=== PATIENT | female | born 1980 | race Caucasian/White ===

== ENCOUNTER 2024-06-06 17:55 | Inpatient (IN) ==
[2024-06-06] MEDS ORDERED: SODIUM BICARBONATE 10 MEQ/10 ML SYRINGE 50 ML ONE (18:20)
[2024-06-06] MEDS: 0.9 % SODIUM CHLORIDE 1000 ML 1,000 ML IV SCH (18:44)
[2024-06-06] MEDS: SODIUM BICARBONATE 10 MEQ/10 ML SYRINGE 50 ML IVP ONE (18:45)
[2024-06-06 20:39] LABS: pH ABG 7.36 (7.35-7.45)
[2024-06-06 20:40] LABS: Base Excess ABG 7.6 mmo1/L (-2-2); Oxygen Saturation ABG 95 % (92-100); PCO2 ABG 62 mmHg (35-45); PO2 ABG 78 mmHg (60-100)
[2024-06-06] MEDS ORDERED: ACETAMINOPHEN 1000 MG/100 ML 1,000 MG/100 ML IV.SOLN IV PRN (22:14)
[2024-06-06] MEDS ORDERED: METOCLOPRAMIDE HCL 5 MG in 0.9 % SODIUM CHLORIDE 50 ML IVP PRN (22:14)
[2024-06-06 23:19] LABS: Oxygen Saturation ABG 98 % (92-100); pH ABG 7.35 (7.35-7.45)
[2024-06-06 23:34] LABS: Base Excess ABG 6.7 mmo1/L (-2-2); PCO2 ABG 62 mmHg (35-45); PO2 ABG 103 mmHg (60-100)
[2024-06-07] MEDS: IPRATROPIUM/ALBUTEROL SULFATE 3 ML AMPUL.NEB INH SCH (00:43)
[2024-06-07] MEDS: TRAZODONE HCL 50 MG TABLET PO SCH ×2 (04:39→10:04)
[2024-06-07 05:26] LABS: Basophils%(Percent) Auto 0.1 (0.1-0.85); Eosinophils#(Absolute)Auto 0.1 (0.0-0.2); Eosinophils%(Percent) Auto 0.6 % (0.4-2.8); Granulocytes % - Auto 84.8 % (47.8-71.3); Granulocytes#(Absolute)- Auto 15.3 (2.3-6.0); Hematocrit 34.5 % (35.9-46.7); Mean Corpuscular Volume 88.4 fl (81.0-93.7); Monocytes #(Absolute)- Auto 0.8 (1.1-3.1); Monocytes %(Percent)- Auto 4.6 % (3.6-9.8); Platelet Count 342 K/uL (152-353); White Blood Count 18.1 K/uL (4.3-9.3)
[2024-06-07 05:35] LABS: Potassium 4.1 mmol/L (3.6-5.2)
[2024-06-07] MEDS: BUDESONIDE 0.5 MG/2 ML AMPUL.NEB INH SCH (08:20)
[2024-06-07] MEDS ORDERED: ACETAMINOPHEN 325 MG TABLET PO PRN ×2 (09:00)
[2024-06-07 09:29] LABS: PCO2 ABG 56 mmHg (35-45); PO2 ABG 55 mmHg (60-100); pH ABG 7.37 (7.35-7.45)
[2024-06-07 09:30] LABS: Base Excess ABG 5.7 mmo1/L (-2-2); Oxygen Saturation ABG 87 % (92-100)
[2024-06-07] MEDS ORDERED: ZIPRASIDONE MESYLATE 20 MG/ML VIAL IM PRN (10:00)
[2024-06-07] MEDS: POTASSIUM CHLORIDE 20 MEQ TAB.ER.PRT PO SCH (10:04)
[2024-06-07] MEDS: SERTRALINE HCL 50 MG TABLET PO SCH (10:04)
[2024-06-07] MEDS: lamoTRIgine 100 MG TABLET PO SCH (10:04)
[2024-06-07] MEDS: carvediloL 6.25 MG TABLET PO SCH (10:04)
[2024-06-07] MEDS: CHOLECALCIFEROL 1,000 UNITS TABLET (25 MCG) PO SCH ×2 (10:05→10:50)
[2024-06-07] MEDS: PANTOPRAZOLE SODIUM 40 MG TABLET.DR PO SCH (10:06)
[2024-06-07] MEDS: lamoTRIgine 25 MG TABLET PO SCH (10:06)
[2024-06-07] MEDS: OLANZapine 5 MG TABLET PO SCH (10:07)
[2024-06-07] MEDS: AZITHROMYCIN 500 MG 500 MG in 0.9 % SODIUM CHLORIDE 250 ML IV SCH (10:07)
[2024-06-07] MEDS: LEVOTHYROXINE SODIUM 50 MCG TABLET PO SCH (10:07)
[2024-06-07] MEDS: ziprasidone HCL 20 MG CAPSULE PO SCH ×2 (10:07→10:52)
--- NOTE | 2024-06-07 10:51 | Progress Note ---
Progress Note: Subjective Subjective Interval history: Patient is rather agitated and pulling out lines and not tolerating BiPAP or she is given Geodon and Versed in the morning as they were resolved she is more alert did not believe that her lines and is able to eat without difficulty. Patient remained afebrile repeat ABGs look better than original 1 from yesterday. Patient is unaware of any other occurrences as he is agitated and is asking for her mom and to go home Exam 2 Exam: Observed in the day room receiving IV antibiotics. She was trying to pull the IV out of her arm. Constitutional: abnormal general appearance (she is obese and has cerebral palsy, she always looks unkept) (disheveled) and (chronically ill), distress noted (moderate) and (respiratory), abnormal body habitus (obese), limitations noted (altered mental status), (behavioral limitations) and (physical limitations) and level of alertness abnormal (obtunded), (lethargic) and (confused) Vital Signs - 24 hr 06/06/24 18:00 06/06/24 18:38 06/06/24 18:40 Temperature 100 F H Pulse Rate 88 Pulse Rate [Left R adial] 94 H 98 H Respiratory Rate 24 19 Blood Pressure [Le ft Arm] 121/71 Pulse Oximetry 84 L 98 Oxygen Delivery Me thod Nasal Cannula BiPAP Oxygen Flow Rate 4 Fraction of Inspir ed Oxygen 60 06/06/24 19:00 06/06/24 19:30 06/06/24 20:00 Temperature 98.3 F Pulse Rate Pulse Rate [Left R adial] 87 88 96 H Respiratory Rate 20 20 19 Blood Pressure [Le ft Arm] 126/83 126/81 117/75 Pulse Oximetry 96 96 96 Oxygen Delivery Me thod BiPAP BiPAP BiPAP Oxygen Flow Rate Fraction of Inspir ed Oxygen 06/06/24 20:09 06/06/24 20:30 06/06/24 20:57 Temperature 98.1 F Pulse Rate 91 H Pulse Rate [Left R adial] 100 H 99 H Respiratory Rate 18 18 Blood Pressure [Le ft Arm] 118/75 125/84 Pulse Oximetry 98 98 Oxygen Delivery Me thod BiPAP BiPAP Oxygen Flow Rate Fraction of Inspir ed Oxygen 60 06/07/24 00:20 06/07/24 00:29 06/07/24 00:43 Temperature 98.8 F Pulse Rate 89 Pulse Rate [Left R adial] 90 Respiratory Rate 26 H Blood Pressure [Le ft Arm] 119/73 Pulse Oximetry 92 L 94 L Oxygen Delivery Me thod BiPAP Oxygen Flow Rate Fraction of Inspir ed Oxygen 60 06/07/24 04:00 06/07/24 04:36 06/07/24 04:36 Temperature 98.8 F Pulse Rate 75 Pulse Rate [Left R adial] 91 H Respiratory Rate 15 Blood Pressure [Le ft Arm] 107/65 Pulse Oximetry 93 L 97 Oxygen Delivery Me thod BiPAP Oxygen Flow Rate Fraction of Inspir ed Oxygen 60 06/07/24 08:00 06/07/24 08:00 06/07/24 08:21 Temperature 99 F Pulse Rate 92 H Pulse Rate [Left R adial] 97 H Respiratory Rate 19 Blood Pressure [Le ft Arm] 118/76 Pulse Oximetry 99 97 Oxygen Delivery Me thod BiPAP Oxygen Flow Rate Fraction of Inspir ed Oxygen 60 HENMT: normocephalic, head/scalp atraumatic, hearing grossly normal bilaterally, external ears normal, EACs normal, TMs abnormal, nasal mucous membranes normal, external nose normal, oral mucous membranes abnormal, oropharynx abnormal and dentition abnormal Teeth are ground down to gum. Eyes: PERRL, EOMs intact bilaterally, conjunctivae normal, no scleral icterus, papilledema noted and periorbital findings normal Neck/C-Spine: trachea midline, cervical spine nontender, abnormal cervical ROM noted, supple, no meningeal signs and thyroid normal Lymph: no lymphadenopathy noted and no lymphedema noted Chest: palpation of chest normal Respiratory: breath sounds unequal (shallow and deminished), abnormal respiratory effort (shallow breathing), auscultation abnormal (diminished breath sound), wheezing noted, no rales, no retractions and no use of accessory muscles rapid Cardiovascular: heart rate abnormal (tachycardic), regular rhythm noted, gallop noted, rub noted, murmur noted, JVD noted and click(s) noted Gastrointestinal: abdomen abnormal to inspection (obese), abdomen soft to palpation, nontender to palpation, nondistended, abnormal bowel sounds noted (hypoactive bowel sounds), hepatosplenomegaly noted, no pulsatile mass, no ascites and hernia noted (umbilical) (rash weeping) Genitourinary: no CVA tenderness and bladder normal to palpation Back/Pelvis: no thoracic spine tenderness, no lumbar spine tenderness, thoracic spine ROM abnormal and lumbar spine ROM abnormal Extremities: normal to palpation, no tenderness, abnormal ROM noted and deformity noted 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 Feel stressed/tense/nervous/anxious/difficulty sleeping: to some extent Life stressor details: Being in a LTC facility away from her family Due to disability, difficulty making decisions: Yes (limited cognitive ability) Skin: skin color abnormal, rash noted (erythema and weeping breast and groin and open weeping abrasion in the umbi), lesion(s) noted, ecchymosis noted, wound(s) noted, laceration(s) noted Reports (irregular), (superficial) and other (weeping in the umbilical hernia), skin turgor abnormal, no jaundice, no petechiae, no mottling and nails abnormality noted Progress Note: Objective Labs Labs: CBC WBC 18.1 K/uL (4.3-9.3) H 06/07/24 05:15 RBC 3.9 M/uL (4.00-5.50) L 06/07/24 05:15 Hgb 10.9 gm/dL (12.5-15.8) L 06/07/24 05:15 Hct 34.5 % (35.9-46.7) L 06/07/24 05:15 MCV 88.4 fl (81.0-93.7) 06/07/24 05:15 MCH 28.0 pg (27.6-32.2) 06/07/24 05:15 MCHC 31.6 g/dl (33.1-35.3) L 06/07/24 05:15 RDW 15.9 % (11.4-14.2) H 06/07/24 05:15 Plt Count 342 K/uL (152-353) 06/07/24 05:15 MPV 7.1 fl (6.9-10.8) 06/07/24 05:15 Gran % 84.8 % (47.8-71.3) H 06/07/24 05:15 Lymph % (Auto) 9.9 % (20.0-43.0) L 06/07/24 05:15 Grayson % (Auto) 4.6 % (3.6-9.8) 06/07/24 05:15 Eos % (Auto) 0.6 % (0.4-2.8) 06/07/24 05:15 Baso % (Auto) 0.1 (0.1-0.85) 06/07/24 05:15 Lymph # (Auto) 1.8 (1.1-3.1) 06/07/24 05:15 Grayson # (Auto) 0.8 (1.1-3.1) L 06/07/24 05:15 Eos # (Auto) 0.1 (0.0-0.2) 06/07/24 05:15 Baso # (Auto) 0.0 (0.0-0.1) 06/07/24 05:15 Absolute Gran (auto) 15.3 (2.3-6.0) H 06/07/24 05:15 BMP Sodium 140 mmol/L (136-145) 06/07/24 05:15 Potassium 4.1 mmol/L (3.6-5.2) 06/07/24 05:15 Chloride 104.0 mmol/L (98-107) 06/07/24 05:15 Carbon Dioxide 32 mmol/L (21-32) 06/07/24 05:15 Anion Gap 4.0 mEq/L (4-14) 06/07/24 05:15 BUN 15 mg/dL (7-18) 06/07/24 05:15 Creatinine 0.8 mg/dL (0.6-1.3) 06/07/24 05:15 Estimated GFR 93.7 (>59.9) 06/07/24 05:15 Glucose 81 mg/dL (70-110) 06/07/24 05:15 Calcium 7.9 mg/dL (8.5-10.1) L 06/07/24 05:15 Total Bilirubin 0.83 mg/dL (0.0-1.0) 06/07/24 05:15 AST 18 U/L (15-37) 06/07/24 05:15 ALT 20 U/L (30-65) L 06/07/24 05:15 Alkaline Phosphatase 113 U/L (50-136) 06/07/24 05:15 Total Protein 6.5 g/dL (6.4-8.2) 06/07/24 05:15 Albumin 2.0 g/dL (3.4-5.0) L 06/07/24 05:15 Liver Function Total Bilirubin 0.83 mg/dL (0.0-1.0) 06/07/24 05:15 AST 18 U/L (15-37) 06/07/24 05:15 ALT 20 U/L (30-65) L 06/07/24 05:15 Alkaline Phosphatase 113 U/L (50-136) 06/07/24 05:15 Total Protein 6.5 g/dL (6.4-8.2) 06/07/24 05:15 Albumin 2.0 g/dL (3.4-5.0) L 06/07/24 05:15 ABG Attestation: I have reviewed the pertinent ABG results. Interpretation: 06/06/24 16:59 06/06/24 19:41 06/06/24 22:20 06/07/24 08:39 06/08/24 00:18 ABG pH (7.35-7.45) 7.29L* w 7.36 w 7.35 w 7.37 y 7.34L ABG pCO2 (35-45mmHg) 70H* r 62H* r 62H* r 56H* r 60H* ABG pO2 (60-100mmHg) 59L w 78 y 103H y 55L w 82 ABG pO2 w 169 w 350 w 350 w 187 w 182 ABG PO2/FiO2 Ratio w 0.35 w 0.22 w 0.29 w 0.45 ABG HCO3 (22-26mmo1/L) 33.7H y 35.0H y 34.2H y 32.4H y 32.4H ABG Total CO2 w 35.8 w 36.9 w 36.1 w 34.1 w 34.2 ABG O2 Saturation (92-100%) 87L* w 95 w 98 r 87L* w 95 ABG Base Excess (-2-2mmo1/L) 5.0H y 7.6H y 6.7H y 5.7H y 5H A-a O2 Gradient w 110 w 272 w 247 w 132 w 100 Respiratory Index (0-1) 1.9H y 3.5H y 2.4H y 2.4H y 1.2H Vent Mode w bipap 20/5 w bipap 20/5 18 w FiO2 w 36 w 60 w 60.0 w 36 w 36 Pulse Oximetry Attestation: I have reviewed the pertinent pulse oximetry results. ECG Attestation: I have reviewed the pertinent ECG results. Prior ECG tracings: available for review Imaging acute abdominal series: Attestation: I personally reviewed and interpreted this imaging study as follows: Radiologist's impression: EXAM: XR ACUTE ABDOMEN SERIES HISTORY: BOWLSBOWLS; Unavailable COMPARISON: Chest radiograph May 20, 2024 TECHNIQUE: FINDINGS: The trachea is midline. The cardiac silhouette is borderline in size. An infiltration is at left lower lung zone. The rest of lungs are clear without focal mass or consolidation. There is no effusion or pneumothorax. The bony thorax is unremarkable. Flat plate and upright evaluation of the abdomen demonstrates a normal bowel gas pattern. There is no pneumoperitoneum. Gallbladder is surgically absent. No pathological soft tissue mass or calcification can be observed. The bony structures are grossly intact. IMPRESSION: 1. Left lung base pneumonia. 2. No evidence for acute abdominal pathology identified. EXAM: XR CHEST 2V HISTORY: left pneumonia, hypercapnealeft pneumonia, hypercapnea; COMPARISON: May 23, 2024 FINDINGS: The trachea is midline. The cardiac silhouette is mildly enlarged. Bilateral patchy infiltrates are at mid and lower lung zones. The rest of lungs are clear without focal infiltrate or effusion. The bony thorax is unremarkable. IMPRESSION: Bilateral bronchopneumonia. Progress Note: A&P Assessment and Plan (1) Respiratory failure with hypoxia and hypercapnia: Qualifiers: Chronicity: acute Qualified Code(s): J96.01 - Acute respiratory failure with hypoxia; J96.02 - Acute respiratory failure with hypercapnia (2) Seizure: (3) Abrasion of abdominal wall with infection: Qualifiers: Encounter type: initial encounter Qualified Code(s): S30.811A - Abrasion of abdominal wall, initial encounter; L08.9 - Local infection of the skin and subcutaneous tissue, unspecified (4) Nausea & vomiting: Assessment and Plan: none noted today and patient tolerating speech therapy and food well today although still has nausea Qualifiers: Vomiting type: unspecified Qualified Code(s): R11.2 - Nausea with vomiting, unspecified (5) Pneumonia: Qualifiers: Laterality: left Lung location: lower lobe of lung Pneumonia type: due to unspecified organism Qualified Code(s): J18.9 - Pneumonia, unspecified organism (6) Hypoalbuminemia: (7) Tinea: (8) Hyponatremia: (9) Tachycardia: (10) Anemia: Qualifiers: Anemia type: unspecified type Qualified Code(s): D64.9 - Anemia, unspecified (11) Hypercapnia: (12) Generalized anxiety disorder: (13) Suicidal ideations: (14) Depression with suicidal ideation: (15) Major depressive disorder, recurrent, moderate: (16) Cerebral palsy: Qualifiers: Cerebral palsy type: unspecified type Qualified Code(s): G80.9 - Cerebral palsy, unspecified (17) Hypothyroid: Qualifiers: Hypothyroidism type: acquired Qualified Code(s): E03.9 - Hypothyroidism, unspecified (18) GERD (gastroesophageal reflux disease): Qualifiers: Esophagitis bleeding: without hemorrhage Esophagitis presence: with esophagitis Qualified Code(s): K21.00 - Gastro-esophageal reflux disease with esophagitis, without bleeding (19) HTN (hypertension): Qualifiers: Hypertension type: primary hypertension Qualified Code(s): I10 - Essential (primary) hypertension (20) Oppositional defiant behavior: Plan Azithromycin 500 mg in Sodium Chloride 250 mls @ 250 mls/hr IV Q24H vancomycin pharmacy to dose zosyn 3.375 gram IV every 6 hours Bipap and titrate and wean as tolerated duo nebs Sulfate 3 ml INH RQ4 Budesonide 0.5 mg INH RBID Ketorolac Tromethamine 30 mg IVP ONCE and q6 hours Phenergan 25 mg IV ONCE hours prn reglan 5 every 6 hours prn zosyn pharmacy to dose vancomycin pharmacy to dose lactic acid induced sputum culture abg to follow gas ekg electrolyte replacement as needed CBC, CMP and blood culture tylenol 1 gram IV every 4 hours prn physical therapy for posural drainage NPO until can tolerate food with no more emesis x 2 hours and patient more alert NS 500 ml bolut then run at 125 ml per hour keep belly button clean and dry Continue to monitor Fall Risk Details Rowland Fall Scale Risk Level: Moderate Fall Risk Current Medications: Current Medications Acetaminophen (Acetaminophen 325 Mg Tablet) 650 mg PO Q6H PRN PRN Reason: MILD PAIN SCALE 1-4 Acetaminophen (Acetaminophen 325 Mg Tablet) 650 mg PO Q6H PRN PRN Reason: Fever OF 100.5 OR GREATER Albuterol Sulfate (Ipratropium/Albuterol Sulfate 3 Ml Ampul.Neb) 3 ml INH RQ4 [facility] Last Admin: 06/07/24 08:20 Dose: 3 ml Atorvastatin Calcium (Atorvastatin Calcium 10 Mg Tablet) 10 mg PO BEDTIME GUILHERME Budesonide (Budesonide 0.5 Mg/2 Ml Ampul.Neb) 0.5 mg INH RBID [facility] Last Admin: 06/07/24 08:20 Dose: 0.5 mg Carvedilol (Carvedilol 6.25 Mg Tablet) 6.25 mg PO BID [facility] Last Admin: 06/07/24 10:04 Dose: 6.25 mg Cholecalciferol (Cholecalciferol 1,000 Units Tablet (25 Mcg)) 5,000 unit PO DAILY [facility] Last Admin: 06/07/24 10:05 Dose: 5,000 unit Cholecalciferol (Cholecalciferol 1,000 Units Tablet (25 Mcg)) 1,000 unit PO BID [facility] Sodium Chloride (Sodium Chloride) 1,000 mls @ 125 mls/hr IV CONT [facility] Last Admin: 06/07/24 04:16 Dose: 125 mls/hr Azithromycin 500 mg/ Sodium (Chloride) 250 mls @ 250 mls/hr IV DAILY [facility] Last Admin: 06/07/24 10:07 Dose: 250 mls/hr Promethazine HCl 25 mg/ Sodium (Chloride) 51 mls @ 200 mls/hr IV Q6H PRN PRN Reason: Nausea And Vomiting Metoclopramide HCl 5 mg/ (Sodium Chloride) 51 mls @ 200 mls/hr IVP Q8H PRN PRN Reason: Nausea And Vomiting Acetaminophen (Acetaminophen 1000 Mg/100 Ml) 1,000 mg in 100 mls @ 400 mls/hr IV Q4H PRN PRN Reason: Pain or fever Ketorolac Tromethamine (Ketorolac 30 Mg/Ml Inj Vial) 30 mg IVP Q6H PRN PRN Reason: Pain Stop: 06/11/24 22:08 Lamotrigine (Lamotrigine 25 Mg Tablet) 25 mg PO BID [facility] Last Admin: 06/07/24 10:06 Dose: 25 mg Lamotrigine (Lamotrigine 100 Mg Tablet) 100 mg PO BID [facility] Last Admin: 06/07/24 10:04 Dose: 100 mg Levothyroxine Sodium (Levothyroxine Sodium 50 Mcg Tablet) 50 mcg PO QDAC [facility] Last Admin: 06/07/24 10:07 Dose: 50 mcg Olanzapine (Olanzapine 5 Mg Tablet) 5 mg PO BID [facility] Last Admin: 06/07/24 10:07 Dose: 5 mg Oxcarbazepine (Oxcarbazepine 150 Mg Tablet) 600 mg PO BID [facility] Pantoprazole Sodium (Pantoprazole Sodium 40 Mg Tablet.Dr) 40 mg PO DAILY [facility] Last Admin: 06/07/24 10:06 Dose: 40 mg Potassium Chloride (Potassium Chloride 20 Meq Tab.Er.Prt) 20 meq PO DAILY [facility] Last Admin: 06/07/24 10:04 Dose: 20 meq Sertraline HCl (Sertraline Hcl 50 Mg Tablet) 100 mg PO DAILY [facility] Last Admin: 06/07/24 10:04 Dose: 100 mg Trazodone HCl (Trazodone Hcl 50 Mg Tablet) 100 mg PO BID [facility] Last Admin: 06/07/24 10:42 Dose: Not Given Trazodone HCl (Trazodone Hcl 50 Mg Tablet) 100 mg PO BID [facility] Last Admin: 06/07/24 10:04 Dose: 100 mg Ziprasidone (Ziprasidone Mesylate 20 Mg/Ml Vial) 10 mg IM Q8H PRN PRN Reason: Agitation Ziprasidone (Ziprasidone Hcl 20 Mg Capsule) 40 mg PO DAILY [facility] Last Admin: 06/07/24 10:07 Dose: 40 mg Ziprasidone (Ziprasidone Hcl 20 Mg Capsule) 60 mg PO BID [facility] Ziprasidone (Ziprasidone Mesylate 20 Mg/Ml Vial) 10 mg IM Q8H PRN PRN Reason: AGITATION Time Spent With Patient Time: Total time spent is greater than 50% in coordination of care (as documented) at patient's floor/unit and/or counseling patient: Time with patient: greater than 35 minutes
[2024-06-07] MEDS: METOCLOPRAMIDE HCL 5 MG in 0.9 % SODIUM CHLORIDE 50 ML IVP SCH (15:18)
--- NOTE | 2024-06-07 15:38 | Discharge Summary ---
DS: Providers Provider Date of admission: 06/06/24 18:03 Primary care physician: Jonah Blackburn MD Consults: 06/06/24 22:14 Consult to Physical Therapy Routine Comment: Consulting Provider: Reason for consultation: postural drainage Physician Instructions: for postural drainage 06/07/24 14:31 Consult to Occupational Therapy Routine Comment: Consulting Provider: Reason for consultation: weakness and cerebral palsy Physician Instructions: evaluate and treat Consult to Physical Therapy Routine Comment: Consulting Provider: Reason for consultation: weakness and cerbal palsy Physician Instructions: evaluate and treat Consult to Speech Therapy Routine Comment: Consulting Provider: Reason for consultation: weakness and cerebral palsy Physician Instructions: evaluate and treat Discharging clinician: Jonah Blackburn Anticipated date of discharge: 06/06/24 DS: Summary Hospital Course Hospital Course: Patient was transferred to the medical surgical floor for IV fluids and breathing treatments. Status at Discharge Cognitive/behavioral status at discharge: agitated and uncooperative, hollering out. trying to pull out her IV. Functional status at discharge: bed bound Overall status at discharge: other (has pneumonia) Time Spent with Patient Time attestation: Total time spent providing and/or coordinating discharge services: 30 minutes Time spent: greater than 30 minutes Exam Constitutional: average body habitus (obese and is unable to do for herself. Total care.) and alert Vital Signs - 24 hr 06/06/24 18:00 06/06/24 18:38 06/06/24 18:40 Temperature 100 F H Pulse Rate 88 Pulse Rate [Left R adial] 94 H 98 H Respiratory Rate 24 19 Blood Pressure [Le ft Arm] 121/71 Pulse Oximetry 84 L 98 Oxygen Delivery Me thod Nasal Cannula BiPAP Oxygen Flow Rate 4 Fraction of Inspir ed Oxygen 60 06/06/24 19:00 06/06/24 19:30 06/06/24 20:00 Temperature 98.3 F Pulse Rate Pulse Rate [Left R adial] 87 88 96 H Respiratory Rate 20 20 19 Blood Pressure [Le ft Arm] 126/83 126/81 117/75 Pulse Oximetry 96 96 96 Oxygen Delivery Me thod BiPAP BiPAP BiPAP Oxygen Flow Rate Fraction of Inspir ed Oxygen 06/06/24 20:09 06/06/24 20:30 06/06/24 20:57 Temperature 98.1 F Pulse Rate 91 H Pulse Rate [Left R adial] 100 H 99 H Respiratory Rate 18 18 Blood Pressure [Le ft Arm] 118/75 125/84 Pulse Oximetry 98 98 Oxygen Delivery Me thod BiPAP BiPAP Oxygen Flow Rate Fraction of Inspir ed Oxygen 60 06/07/24 00:20 06/07/24 00:29 06/07/24 00:43 Temperature 98.8 F Pulse Rate 89 Pulse Rate [Left R adial] 90 Respiratory Rate 26 H Blood Pressure [Le ft Arm] 119/73 Pulse Oximetry 92 L 94 L Oxygen Delivery Me thod BiPAP Oxygen Flow Rate Fraction of Inspir ed Oxygen 60 06/07/24 04:00 06/07/24 04:36 06/07/24 04:36 Temperature 98.8 F Pulse Rate 75 Pulse Rate [Left R adial] 91 H Respiratory Rate 15 Blood Pressure [Le ft Arm] 107/65 Pulse Oximetry 93 L 97 Oxygen Delivery Me thod BiPAP Oxygen Flow Rate Fraction of Inspir ed Oxygen 60 06/07/24 08:00 06/07/24 08:00 06/07/24 08:21 Temperature 99 F Pulse Rate 92 H Pulse Rate [Left R adial] 97 H Respiratory Rate 19 Blood Pressure [Le ft Arm] 118/76 Pulse Oximetry 99 97 Oxygen Delivery Me thod BiPAP Oxygen Flow Rate Fraction of Inspir ed Oxygen 60 06/07/24 11:35 06/07/24 12:00 Temperature 97.8 F Pulse Rate Pulse Rate [Left R adial] 88 Respiratory Rate 19 Blood Pressure [Le ft Arm] 139/83 Pulse Oximetry 99 95 Oxygen Delivery Me thod Room Air Oxygen Flow Rate Fraction of Inspir ed Oxygen HENMT: She has cerebral palsy and she rotates her head around and around her neck. 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 She is unable to ambulate but she can transfer. Psychiatry: Mental Status Exam documented in the separate MSE Feel stressed/tense/nervous/anxious/difficulty sleeping: to some extent Due to disability, difficulty making decisions: Yes (limited cognitive ability.) DS: Data Data Completed and Pending Labs on day of discharge: Labs from last 24 hours 06/07/24 06/07/24 06/07/24 08:39 08:39 05:15 WBC 18.1 H RBC 3.9 L Hgb 10.9 L Hct 34.5 L MCV 88.4 MCH 28.0 MCHC 31.6 L RDW 15.9 H Plt Count 342 MPV 7.1 Gran % 84.8 H Lymph % (Auto) 9.9 L [place]rell % (Auto) 4.6 Eos % (Auto) 0.6 Baso % (Auto) 0.1 Lymph # (Auto) 1.8 [place]rell # (Auto) 0.8 L Eos # (Auto) 0.1 Baso # (Auto) 0.0 Absolute Gran (auto) 15.3 H ABG pH 7.37 ABG pCO2 56 H* ABG pO2 187 55 L ABG PO2/FiO2 Ratio 0.29 ABG HCO3 32.4 H ABG Total CO2 34.1 ABG O2 Saturation 87 L* ABG Base Excess 5.7 H A-a O2 Gradient 132 Respiratory Index 2.4 H Vent Mode FiO2 36 Sodium 140 Potassium 4.1 Chloride 104.0 Carbon Dioxide 32 Anion Gap 4.0 BUN 15 Creatinine 0.8 Estimated GFR 93.7 Glucose 81 Lactic Acid 0.5 Calcium 7.9 L Total Bilirubin 0.83 AST 18 ALT 20 L Alkaline Phosphatase 113 Total Protein 6.5 Albumin 2.0 L 06/06/24 06/06/24 06/06/24 22:20 22:20 19:41 WBC RBC Hgb Hct MCV MCH MCHC RDW Plt Count MPV Gran % Lymph % (Auto) Terrell % (Auto) Eos % (Auto) Baso % (Auto) Lymph # (Auto) Terrell # (Auto) Eos # (Auto) Baso # (Auto) Absolute Gran (auto) ABG pH 7.35 ABG pCO2 62 H* ABG pO2 350 103 H 350 ABG PO2/FiO2 Ratio 0.22 ABG HCO3 34.2 H 35.0 H ABG Total CO2 36.1 36.9 ABG O2 Saturation 98 95 ABG Base Excess 6.7 H 7.6 H A-a O2 Gradient 247 272 Respiratory Index 2.4 H 3.5 H Vent Mode bipap 20/5 18 bipap 20/5 FiO2 60.0 60 Sodium Potassium Chloride Carbon Dioxide Anion Gap BUN Creatinine Estimated GFR Glucose Lactic Acid Calcium Total Bilirubin AST ALT Alkaline Phosphatase Total Protein Albumin 06/06/24 19:41 WBC RBC Hgb Hct MCV MCH MCHC RDW Plt Count MPV Gran % Lymph % (Auto) Terrell % (Auto) Eos % (Auto) Baso % (Auto) Lymph # (Auto) Terrell # (Auto) Eos # (Auto) Baso # (Auto) Absolute Gran (auto) ABG pH 7.36 ABG pCO2 62 H* ABG pO2 78 ABG PO2/FiO2 Ratio ABG HCO3 ABG Total CO2 ABG O2 Saturation ABG Base Excess A-a O2 Gradient Respiratory Index Vent Mode FiO2 Sodium Potassium Chloride Carbon Dioxide Anion Gap BUN Creatinine Estimated GFR Glucose Lactic Acid Calcium Total Bilirubin AST ALT Alkaline Phosphatase Total Protein Albumin Discharge Plan Discharge Disposition: [facility] Hospital Condition: Other Discharge Medications: No Action acetaminophen [Pain Reliever (acetaminophen)] 325 mg tablet 650 mg PO Q6H PRN (Reason: fever or pain) atorvastatin 10 mg tablet 10 mg PO BEDTIME carvedilol 6.25 mg tablet 6.25 mg PO BID furosemide 40 mg tablet 40 mg PO DAILY lamotrigine 100 mg tablet 100 mg PO BID lamotrigine 25 mg tablet 25 mg PO BID levothyroxine 50 mcg tablet 50 mcg PO .QDAC olanzapine 5 mg tablet 5 mg PO BID oxcarbazepine 600 mg tablet 600 mg PO BID pantoprazole 40 mg tablet,delayed release (DR/EC) 40 mg PO DAILY potassium chloride 20 mEq tablet,ER particles/crystals 20 meq PO DAILY sertraline 100 mg tablet 100 mg PO DAILY trazodone 100 mg tablet 100 mg PO BID ziprasidone HCl 60 mg capsule 60 mg PO BID ziprasidone mesylate 20 mg/mL (final conc.) recon soln 10 mg IM Q8H ziprasidone HCl 40 mg capsule 40 mg PO DAILY cholecalciferol (vitamin D3) 25 mcg (1,000 unit) capsule 1,000 unit PO BID cholecalciferol (vitamin D3) 125 mcg (5,000 unit) capsule 5,000 unit PO DAILY ketoconazole-salicylic acid 2-2 % shampoo 1 ea topical Q OTHER DAY cetirizine [24Hour Allergy] 10 mg tablet 10 mg PO DAILY Discharge Orders: Discharge Order (Routine); Ordered 06/06/24 Ordered By: Ree Sandoval Activity: increase activity as tolerated and resume usual activities as tolerated Diet Detail: mechanical soft Hospital Course: Patient was transferred to the medical surgical floor for IV fluids and breathing treatments. Interventions: MED/SURG & ICU Observation Charge Sheet Last Done: 06/06/24 18:03
[2024-06-07] MEDS: PIPERACILLIN/TAZOBACTAM 3.375 3.375 GM in 0.9 % SODIUM CHLORIDE MB+ 100 ML IV SCH (16:15)
--- NOTE | 2024-06-07 16:36 | Discharge Summary ---
DS: Providers Provider Date of admission: 06/06/24 18:03 Primary care physician: Jonah Blackburn MD Consults: 06/06/24 22:14 Consult to Physical Therapy Routine Comment: Consulting Provider: Reason for consultation: postural drainage Physician Instructions: for postural drainage 06/07/24 14:31 Consult to Occupational Therapy Routine Comment: Consulting Provider: Reason for consultation: weakness and cerebral palsy Physician Instructions: evaluate and treat Consult to Physical Therapy Routine Comment: Consulting Provider: Reason for consultation: weakness and cerbal palsy Physician Instructions: evaluate and treat Consult to Speech Therapy Routine Comment: Consulting Provider: Reason for consultation: weakness and cerebral palsy Physician Instructions: evaluate and treat Discharging clinician: Jonah Blackburn Anticipated date of discharge: 06/07/24 DS: Summary Hospital Course Hospital Course: Patient was transferred to the medical surgical floor for IV fluids and breathing treatments. Status at Discharge Cognitive/behavioral status at discharge: agitated and oppositional. trying to take her IV out of her arm. Functional status at discharge: bed bound Overall status at discharge: other (she has pneumonia) Time Spent with Patient Time attestation: Total time spent providing and/or coordinating discharge services: 30 minutes Time spent: greater than 30 minutes Exam Exam: Observed in the day room receiving IV antibiotics. She was trying to pull the IV out of her arm. Constitutional: normal general appearance (she is obese and has cerebral palsy, she always looks unkept) and alert Vital Signs - 24 hr 06/06/24 18:00 06/06/24 18:38 06/06/24 18:40 Temperature 100 F H Pulse Rate 88 Pulse Rate [Left R adial] 94 H 98 H Respiratory Rate 24 19 Blood Pressure [Le ft Arm] 121/71 Pulse Oximetry 84 L 98 Oxygen Delivery Me thod Nasal Cannula BiPAP Oxygen Flow Rate 4 Fraction of Inspir ed Oxygen 60 06/06/24 19:00 06/06/24 19:30 06/06/24 20:00 Temperature 98.3 F Pulse Rate Pulse Rate [Left R adial] 87 88 96 H Respiratory Rate 20 20 19 Blood Pressure [Le ft Arm] 126/83 126/81 117/75 Pulse Oximetry 96 96 96 Oxygen Delivery Me thod BiPAP BiPAP BiPAP Oxygen Flow Rate Fraction of Inspir ed Oxygen 06/06/24 20:09 06/06/24 20:30 06/06/24 20:57 Temperature 98.1 F Pulse Rate 91 H Pulse Rate [Left R adial] 100 H 99 H Respiratory Rate 18 18 Blood Pressure [Le ft Arm] 118/75 125/84 Pulse Oximetry 98 98 Oxygen Delivery Me thod BiPAP BiPAP Oxygen Flow Rate Fraction of Inspir ed Oxygen 60 06/07/24 00:20 06/07/24 00:29 06/07/24 00:43 Temperature 98.8 F Pulse Rate 89 Pulse Rate [Left R adial] 90 Respiratory Rate 26 H Blood Pressure [Le ft Arm] 119/73 Pulse Oximetry 92 L 94 L Oxygen Delivery Me thod BiPAP Oxygen Flow Rate Fraction of Inspir ed Oxygen 60 06/07/24 04:00 06/07/24 04:36 06/07/24 04:36 Temperature 98.8 F Pulse Rate 75 Pulse Rate [Left R adial] 91 H Respiratory Rate 15 Blood Pressure [Le ft Arm] 107/65 Pulse Oximetry 93 L 97 Oxygen Delivery Me thod BiPAP Oxygen Flow Rate Fraction of Inspir ed Oxygen 60 06/07/24 08:00 06/07/24 08:00 06/07/24 08:21 Temperature 99 F Pulse Rate 92 H Pulse Rate [Left R adial] 97 H Respiratory Rate 19 Blood Pressure [Le ft Arm] 118/76 Pulse Oximetry 99 97 Oxygen Delivery Me thod BiPAP Oxygen Flow Rate Fraction of Inspir ed Oxygen 60 06/07/24 11:35 06/07/24 12:00 Temperature 97.8 F Pulse Rate Pulse Rate [Left R adial] 88 Respiratory Rate 19 Blood Pressure [Le ft Arm] 139/83 Pulse Oximetry 99 95 Oxygen Delivery Me thod Room Air Oxygen Flow Rate Fraction of Inspir ed Oxygen HENMT: Teeth are ground down to gum. 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 Feel stressed/tense/nervous/anxious/difficulty sleeping: to some extent Life stressor details: Being in a LTC facility away from her family Due to disability, difficulty making decisions: Yes (limited cognitive ability) DS: Data Data Completed and Pending Completed studies during hospitalization: EKG, UA, labs Pending studies at discharge: none Labs on day of discharge: Labs from last 24 hours 06/07/24 06/07/24 06/07/24 08:39 08:39 05:15 WBC 18.1 H RBC 3.9 L Hgb 10.9 L Hct 34.5 L MCV 88.4 MCH 28.0 MCHC 31.6 L RDW 15.9 H Plt Count 342 MPV 7.1 Gran % 84.8 H Lymph % (Auto) 9.9 L Robertson % (Auto) 4.6 Eos % (Auto) 0.6 Baso % (Auto) 0.1 Lymph # (Auto) 1.8 Robertson # (Auto) 0.8 L Eos # (Auto) 0.1 Baso # (Auto) 0.0 Absolute Gran (auto) 15.3 H ABG pH 7.37 ABG pCO2 56 H* ABG pO2 187 55 L ABG PO2/FiO2 Ratio 0.29 ABG HCO3 32.4 H ABG Total CO2 34.1 ABG O2 Saturation 87 L* ABG Base Excess 5.7 H A-a O2 Gradient 132 Respiratory Index 2.4 H Vent Mode FiO2 36 Sodium 140 Potassium 4.1 Chloride 104.0 Carbon Dioxide 32 Anion Gap 4.0 BUN 15 Creatinine 0.8 Estimated GFR 93.7 Glucose 81 Lactic Acid 0.5 Calcium 7.9 L Total Bilirubin 0.83 AST 18 ALT 20 L Alkaline Phosphatase 113 Total Protein 6.5 Albumin 2.0 L 06/06/24 06/06/24 06/06/24 22:20 22:20 19:41 WBC RBC Hgb Hct MCV MCH MCHC RDW Plt Count MPV Gran % Lymph % (Auto) Robertson % (Auto) Eos % (Auto) Baso % (Auto) Lymph # (Auto) Robertson # (Auto) Eos # (Auto) Baso # (Auto) Absolute Gran (auto) ABG pH 7.35 ABG pCO2 62 H* ABG pO2 350 103 H 350 ABG PO2/FiO2 Ratio 0.22 ABG HCO3 34.2 H 35.0 H ABG Total CO2 36.1 36.9 ABG O2 Saturation 98 95 ABG Base Excess 6.7 H 7.6 H A-a O2 Gradient 247 272 Respiratory Index 2.4 H 3.5 H Vent Mode bipap 20/5 18 bipap 20/5 FiO2 60.0 60 Sodium Potassium Chloride Carbon Dioxide Anion Gap BUN Creatinine Estimated GFR Glucose Lactic Acid Calcium Total Bilirubin AST ALT Alkaline Phosphatase Total Protein Albumin 06/06/24 19:41 WBC RBC Hgb Hct MCV MCH MCHC RDW Plt Count MPV Gran % Lymph % (Auto) Robertson % (Auto) Eos % (Auto) Baso % (Auto) Lymph # (Auto) Robertson # (Auto) Eos # (Auto) Baso # (Auto) Absolute Gran (auto) ABG pH 7.36 ABG pCO2 62 H* ABG pO2 78 ABG PO2/FiO2 Ratio ABG HCO3 ABG Total CO2 ABG O2 Saturation ABG Base Excess A-a O2 Gradient Respiratory Index Vent Mode FiO2 Sodium Potassium Chloride Carbon Dioxide Anion Gap BUN Creatinine Estimated GFR Glucose Lactic Acid Calcium Total Bilirubin AST ALT Alkaline Phosphatase Total Protein Albumin Discharge Plan Discharge Disposition: [facility] Acute Care Hospital Condition: Other Discharge Medications: No Action acetaminophen [Pain Reliever (acetaminophen)] 325 mg tablet 650 mg PO Q6H PRN (Reason: fever or pain) atorvastatin 10 mg tablet 10 mg PO BEDTIME carvedilol 6.25 mg tablet 6.25 mg PO BID furosemide 40 mg tablet 40 mg PO DAILY lamotrigine 100 mg tablet 100 mg PO BID lamotrigine 25 mg tablet 25 mg PO BID levothyroxine 50 mcg tablet 50 mcg PO .QDAC olanzapine 5 mg tablet 5 mg PO BID oxcarbazepine 600 mg tablet 600 mg PO BID pantoprazole 40 mg tablet,delayed release (DR/EC) 40 mg PO DAILY potassium chloride 20 mEq tablet,ER particles/crystals 20 meq PO DAILY sertraline 100 mg tablet 100 mg PO DAILY trazodone 100 mg tablet 100 mg PO BID ziprasidone HCl 60 mg capsule 60 mg PO BID ziprasidone mesylate 20 mg/mL (final conc.) recon soln 10 mg IM Q8H ziprasidone HCl 40 mg capsule 40 mg PO DAILY cholecalciferol (vitamin D3) 25 mcg (1,000 unit) capsule 1,000 unit PO BID cholecalciferol (vitamin D3) 125 mcg (5,000 unit) capsule 5,000 unit PO DAILY ketoconazole-salicylic acid 2-2 % shampoo 1 ea topical Q OTHER DAY cetirizine [24Hour Allergy] 10 mg tablet 10 mg PO DAILY Discharge Orders: Discharge Order (Routine); Ordered 06/07/24 Ordered By: Ree Sandoval Activity: increase activity as tolerated and resume usual activities as tolerated Diet Detail: mechanical soft Hospital Course: Patient was transferred to the medical surgical floor for IV fluids and breathing treatments. Interventions: MED/SURG & ICU Observation Charge Sheet Last Done: 06/06/24 18:03 Plan of Treatment: The overall goal of treatment is to adjust medications to treat increased agitation, aggression, depression, labile mood and affect all likely secondary to declining cognitive functioning. MEDICAL TREATMENT The patient will have a medical workup completed by the hospitalist on admission and as needed throughout the hospitalization to manage acute and chronic medical comorbidities. DISCHARGE CRITERIA: Upon discharge the patient will show improvement in overall level of functioning and behavior. Patients will be free of combative, aggressive, and hostile behaviors. Patients will be free from psychosis and will show improved insight and judgement. Patients will not have any bothersome auditory or visual hallucinations or paranoid ideations. Patient will be free of suicidal ideations or threats of harm to others. ESTIMATED LENGTH OF HOSPITALIZATION: 7-14 days Reason for hospitalization: 1. Potential danger to self and others 2. Impaired social, family and occupational function. 3. Failure of outpatient treatment. 4. Need for intensive structured inpatient treatment. 5. Need for medication stabilization. The overall goal of treatment is to adjust medications to treat bizarre delusions and manic light behaviors. Staff will continue to monitor for unwanted side effects, metabolic symptoms, changes in mood, behavior or symptoms of psychosis. Attempt to stabilize auditory hallucinations and lessen discomfort due to paranoia. Continue to monitor for unwanted side effects to include EPS/TD, metabolic symptoms, changes in mood, behavior or symptoms of psychosis. Monitor for daytime drowsiness or somnolence and unsteadiness. Providers, nurses, and social workers will provide relevant psychoeducation to the patient related to diagnosis, treatment and disposition. The patient will be discussed in treatment team meetings daily and as needed as we work towards transitioning the patient to an appropriate disposition upon discharge. Medications: Continue: Olanzapine 5mg take 5mg by mouth two times a day for psychosis, agitation, and mood stability. Sertraline 100mg take 100mg by mouth daily for depression and anxiety. Trazodone 100mg take 100mg two times a day for depression and insomnia. Ziprasidone 10mg IM Give 10mg IM every 8 hours for agitation and oppositional behaviors as needed. Stop: Discontinue Ziprasidone HCL 40mg daily take 40mg by mouth for psychosis, agitation, and aggression. Discontinue Ziprasidone HCL 60mg take 60mg by mouth two times a day for psychosis, schizoaffective disorder and mood stability. 05/25/2024: Will continue to monitor patients behaviors and will make changes as needed. 05/28/2024: Will continue to monitor patients behaviors and will make changes as needed. 05/29/2024: Will continue to monitor patients behaviors and will make changes as needed. PRN: Use PRN injection of Geodon if patient has any behaviors. 05/30/2024: Will continue to monitor patients behaviors and will make changes as needed. 05/31/2024: Will continue to monitor patients behaviors and will make medication changes as needed. PRN's Patient received PRN's last night for cussing at staff, being oppositional to staff and with care. Tried to redirect but she was being contrary. 06/01/2024: Will continue to monitor patients behaviors and will make adjustments as needed. 06/04/2024: Patient received PRN injection last night and today due to hollering out, oppositional behavior and difficult to redirect. 06/05/2024: Patient received a PRN injection this AM for being oppositional with staff, yelling out and disturbing the entire unit. She was hard to redirect. 06/06/2024: Medications: Stop: Discontinue Zyprexa 5mg take 5mg by mouth two times a day for mood stabilization and psychosis. Start: Add Zyprexa 5mg take 5mg by mouth three times a day for mood stabilization and psychosis. Stop: Discontinue Zyprexa 5mg take 5mg by mouth three times a day for mood stabilization and psychosis while she is taking antibiotics. Discontinue Sertraline 100mg take 100mg by mouth daily for depression and anxiety. until she completes the antibiotics.
[2024-06-07] MEDS: VANCOMYCIN/WATER 750 MG 750 MG/150 ML PIGGYBACK IV SCH (17:28)
[2024-06-07] MEDS: ZIPRASIDONE MESYLATE 20 MG/ML VIAL IM PRN (20:00)
[2024-06-07] MEDS: PROMETHAZINE HCL 25 MG in 0.9 % SODIUM CHLORIDE 50 ML IV PRN (21:01)
[2024-06-07] MEDS: OXcarbazepine 150 MG TABLET PO SCH (21:54)
[2024-06-07] MEDS: ATORVASTATIN CALCIUM 10 MG TABLET PO SCH (21:54)
[2024-06-07] MEDS: LORazepam 2 MG/ML VIAL IVP ONE (23:37)
[2024-06-07] MEDS: ONDANSETRON HCL/PF 4 MG/2 ML VIAL IVP PRN (23:37)
[2024-06-08 00:49] LABS: PCO2 ABG 60 mmHg (35-45); pH ABG 7.34 (7.35-7.45)
[2024-06-08 00:50] LABS: Base Excess ABG 5 mmo1/L (-2-2); Oxygen Saturation ABG 95 % (92-100); PO2 ABG 82 mmHg (60-100)
[2024-06-08] MEDS: ACETAMINOPHEN 1000 MG/100 ML 1,000 MG/100 ML IV.SOLN IV ONE (01:47)
[2024-06-08] MEDS: diphenhydrAMINE HCL 50 MG/ML VIAL INJ PRN (02:14)
[2024-06-08] MEDS: KETOROLAC 30 MG/ML INJ VIAL IVP PRN (04:23)
[2024-06-08 04:44] LABS: Basophils%(Percent) Auto 0.1 (0.1-0.85); Eosinophils#(Absolute)Auto 0.1 (0.0-0.2); Eosinophils%(Percent) Auto 0.9 % (0.4-2.8); Granulocytes % - Auto 81.7 % (47.8-71.3); Granulocytes#(Absolute)- Auto 8.4 (2.3-6.0); Hematocrit 37.8 % (35.9-46.7); Mean Corpuscular Volume 87.4 fl (81.0-93.7); Monocytes #(Absolute)- Auto 0.7 (1.1-3.1); Monocytes %(Percent)- Auto 6.5 % (3.6-9.8); Platelet Count 376 K/uL (152-353); White Blood Count 10.3 K/uL (4.3-9.3)
[2024-06-08 05:03] LABS: Potassium 3.8 mmol/L (3.6-5.2)
[2024-06-08] MEDS: ALBUMIN HUMAN 25% 100 ML IV ONE (10:37)
[2024-06-08 14:02] VITALS: BP 140/72; PULSE 102; RESP 25; TEMP 99.7
== END 2024-06-08 16:32 | disposition short-term general hospital (02) | DRG 189 ==
LOC: EDSTATUS 18:01 → MS 18:03
PROVIDERS: ADMIT Family Medicine; ATTEND Family Medicine
DX: K21.00 Gastro-esophageal reflux disease with esophagitis, without bleeding; D64.89 Other specified anemias; R11.2 Nausea with vomiting, unspecified; R00.0 Tachycardia, unspecified; E88.09 Other disorders of plasma-protein metabolism, not elsewhere classified; Y92.89 Other specified places as the place of occurrence of the external cause; J96.02 Acute respiratory failure with hypercapnia; G80.9 Cerebral palsy, unspecified; R45.851 Suicidal ideations; L08.9 Local infection of the skin and subcutaneous tissue, unspecified; F41.1 Generalized anxiety disorder; I10 Essential (primary) hypertension; J18.9 Pneumonia, unspecified organism; E87.1 Hypo-osmolality and hyponatremia; B35.9 Dermatophytosis, unspecified; R56.9 Unspecified convulsions; F33.1 Major depressive disorder, recurrent, moderate; E03.8 Other specified hypothyroidism; J96.01 Acute respiratory failure with hypoxia; F91.3 Oppositional defiant disorder; S30.811A Abrasion of abdominal wall, initial encounter